=== PATIENT | female | born 1985 | race Caucasian/White ===

== ENCOUNTER 2021-04-01 00:10 | Emergency (ER) | payer BC, OTHER ==
[~2021-04-01] VITALS: Ht 182.9 cm; Wt 102.3 kg
[2021-04-01] MEDS ORDERED: METH-1164 PO (00:36)
[2021-04-01] MEDS ORDERED: SYNT175T2 PO (00:36)
[2021-04-01] MEDS ORDERED: NS 1,000 ML IV ONE (00:50)
[2021-04-01] MEDS ORDERED: ACETAMINOPHEN 500 MG TAB PO ONE (02:05)
[2021-04-01 02:31] LABS: BASO % 0.3 % (0.0-1.0); EOS # 0.4 10^3/uL (0.0-0.5); EOS % 4.7 % (0.0-3.0); HEMATOCRIT 38.1 % (36.0-47.0); HEMOGLOBIN 12.7 g/dl (12.0-15.5); LYMPH # 3.5 10^3/uL (1.5-5.0); LYMPH % 46.1 % (24.0-44.0); MEAN CORPUSCULAR HEMOGLOBIN 30.2 pg (27.0-33.0); MEAN CORPUSCULAR HGB CONC 33.3 g/dl (32.0-36.5); MEAN CORPUSCULAR VOLUME 90.7 fl (80.0-96.0); MONO # 0.6 10^3/uL (0.0-0.8); MONO % 8.3 % (2.0-8.0); NEUTROPHILS # 3.1 10^3/uL (1.5-8.5); NEUTROPHILS % 40.5 % (36.0-66.0); PLATELET COUNT, AUTOMATED 191 10^3/uL (150-450); WHITE BLOOD COUNT 7.6 10^3/uL (4.0-10.0)
[2021-04-01 02:49] LABS: INR 1.01; PROTHROMBIN TIME 13.7 SECONDS (12.7-14.5)
[2021-04-01 02:50] LABS: PARTIAL THROMBOPLASTIN TIME 34.1 SECONDS (25.9-37.0)
[2021-04-01 02:52] LABS: D-DIMER QUANT 583.47 ng/ml (<500)
[2021-04-01 03:02] LABS: ALBUMIN 3.6 GM/DL (3.2-5.2); ALT/SGPT 24 U/L (12-78); BILIRUBIN,DIRECT < 0.1 MG/DL (0.0-0.2); BILIRUBIN,TOTAL 0.3 MG/DL (0.2-1.0); LIPASE 99 U/L (73-393); MB/CK RELATIVE INDEX 0.92 (< OR =4); TOTAL PROTEIN 6.8 GM/DL (6.4-8.2)
[2021-04-01] MEDS ORDERED: MORPHINE 4 MG/ML 1ML VIAL/SYRINGE (J2270) IV ONE (03:25)
[2021-04-01 03:38] LABS: RSV AMPLIFICATION NEGATIVE (NEGATIVE)
--- NOTE | 2021-04-01 04:22 | REPVR ---
PROCEDURE INFORMATION: Exam: US Duplex Artery or Vein of the Abdominal and/or Reproductive Organs, Limited Ovaries Exam date and time: 04/01/2021 2:37 AM Age: 35 years old Clinical indication: Pelvic pain; Additional info: R lower pelvic pain, irreg heavy bleeding TECHNIQUE: Imaging protocol: Real-time duplex ultrasound scan of the arterial or venous flow with quintero scale, color Doppler flow and spectral waveform analysis with image documentation. Limited duplex exam focused on the ovaries. Duplex images required to evaluate for torsion and other vascular conditions. COMPARISON: No relevant prior studies available. FINDINGS: Right ovary/adnexa: Duplex blood flow within the right ovary with color Doppler and spectral waveforms. No evidence of torsion. Left ovary/adnexa: Left ovary not visualized, obscured by bowel gas. IMPRESSION: 1. No evidence of ovarian torsion on the right. 2. Left ovary not visualized, obscured by bowel gas. 3. See complete ultrasound report below. PROCEDURE INFORMATION: Exam: US Pelvis Complete, Transabdominal and US Pelvis, Transvaginal Exam date and time: 04/01/2021 2:37 AM Age: 35 years old Clinical indication: Pelvic pain; Additional info: R lower pelvic pain, irreg heavy bleeding TECHNIQUE: Imaging protocol: Real-time transabdominal and transvaginal pelvic ultrasound (complete) with image documentation. Transvaginal imaging was used for better evaluation of the endometrium, adnexa, and/or cervix. COMPARISON: No relevant prior studies available. FINDINGS: Uterus: Uterus is retroverted measuring 8.0 x 4.6 x 4.6 cm. No myometrial mass. Endometrium is unremarkable measuring 6 mm in thickness. Few nabothian cysts. Right ovary/adnexa: Right ovary measures 2.8 x 1.7 x 1.4 cm and is unremarkable containing small follicles. Blood flow present within the right ovary. No adnexal mass. Left ovary/adnexa: Left ovary not visualized, obscured by bowel gas. Intraperitoneal space: No free fluid. Urinary bladder: Unremarkable. IMPRESSION: 1. Retroverted uterus. Endometrium is unremarkable measuring 6 mm in thickness. 2. Unremarkable right ovary. Nonvisualization of the left ovary. 3. No adnexal masses or free fluid. Electronically signed by: Ramana Farris On 04/01/2021 04:22:23 AM
--- NOTE | 2021-04-01 04:28 | REPVR ---
PROCEDURE INFORMATION: Exam: XR Chest Exam date and time: 04/01/2021 2:52 AM Age: 35 years old Clinical indication: Other: Abdominal pain TECHNIQUE: Imaging protocol: XR of the chest. Views: 2 views. COMPARISON: No relevant prior studies available. FINDINGS: Lungs: Unremarkable. No consolidation. Pleural spaces: Unremarkable. No pleural effusion. No pneumothorax. Heart/Mediastinum: Unremarkable. No cardiomegaly. Bones/joints: Pectus excavatum. No acute bony abnormality. IMPRESSION: No acute abnormalities are identified. Electronically signed by: Ramana Farris On 04/01/2021 04:28:04 AM
[2021-04-01] MEDS ORDERED: ISOVUE-370 76% 100ML VIAL As Ordered ONE (04:29)
[2021-04-01] MEDS ORDERED: KETOROLAC 30 MG/ML 1ML VIAL IV ONE (05:35)
[2021-04-01] MEDS ORDERED: ONDANSETRON 4MG/2ML VIAL IV ONE (05:35)
--- NOTE | 2021-04-01 06:19 | REPVR ---
PROCEDURE INFORMATION: Exam: CTA Chest with Contrast Exam date and time: 04/01/21 (4:47am) Age: 35 years old Clinical indication: Chest pain. Elevated D-dimer. TECHNIQUE: Imaging protocol: Computed tomographic angiography of the chest with contrast. 3D rendering (Not supervised by radiologist): MIP and/or 3D reconstructed images were created by the technologist. Radiation optimization: All CT scans at this facility use at least one of these dose optimization techniques: automated exposure control; mA and/or kV adjustment per patient size (includes targeted exams where dose is matched to clinical indication); or iterative reconstruction. Contrast material: Iso Contrast volume: 100 ml Contrast route: IV COMPARISON: Chest films of 04/01/21 FINDINGS: Pulmonary arteries: Normal. No pulmonary emboli. Aorta: Unremarkable. No aortic aneurysm. No aortic dissection. Lungs: Unremarkable. No consolidation. No masses. Pleural spaces: Unremarkable. No pneumothorax. No pleural effusions. Heart: Unremarkable. No cardiomegaly. No pericardial effusion. Lymph nodes: Unremarkable. No enlarged lymph nodes. Bones/joints: Unremarkable. No acute fracture. Soft tissues: Unremarkable. Upper abdomen: Splenomegaly. IMPRESSION: No acute findings. No filling defects suspicious for pulmonary emboli are seen. There is no CT evidence of aortic dissection nor leakage. No aortic aneurysm is appreciated. Splenomegaly. Electronically signed by: Maryjane Matute On 04/01/2021 06:18:39 AM
--- NOTE | 2021-04-01 06:26 | REPVR ---
PROCEDURE INFORMATION: Exam: CT Abdomen and Pelvis with Contrast Exam date and time: 04/01/21 (4:47am) Age: 35 years old Clinical indication: RLQ pain TECHNIQUE: Imaging protocol: Computed tomography of the abdomen and pelvis with contrast Radiation optimization: All CT scans at this facility use at least one of these dose optimization techniques: automated exposure control; mA and/or kV adjustment per patient size (includes targeted exams where dose is matched to clinical indication); or iterative reconstruction. Contrast material: Iso Contrast volume: 100 ml Contrast route: IV COMPARISON: US PELVIS of 04/01/21 FINDINGS: Liver: No solid mass. Fatty liver infiltration. Gallbladder and bile ducts: S/P cholecystectomy. No ductal dilatation. Pancreas: Normal. No ductal dilatation. Spleen: Mild splenomegaly. Adrenal glands: Normal. No mass. Kidneys and ureters: Normal. No hydronephrosis. Stomach and bowel: Unremarkable. No bowel obstruction. No mucosal thickening. Appendix: No evidence of appendicitis. Intraperitoneal space: Unremarkable. No free air. No significant fluid collection. Vasculature: Unremarkable. No abdominal aortic aneurysm. Lymph nodes: Unremarkable. No enlarged lymph nodes. Urinary bladder: Unremarkable as visualized. Reproductive: Unremarkable as visualized. Bones/joints: Unremarkable. No acute fracture. Soft tissues: Unremarkable. IMPRESSION: No acute findings. S/. P cholecystectomy. No acute bowel pathology. No significant RLQ pathology noted. Electronically signed by: Maryjane Matute On 04/01/2021 06:26:15 AM
[2021-04-01 06:57] VITALS: BP 132/74
--- NOTE | 2021-04-01 16:09 | ECGEPIP ---
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
--- NOTE | 2021-04-01 16:11 | ECGEPIP ---
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
== END 2021-04-01 07:01 | disposition home or self-care (01) ==
LOC: M ED 00:10
DX: R07.9 Chest pain, unspecified (principal); R10.9 Unspecified abdominal pain; R00.1 Bradycardia, unspecified; R11.0 Nausea; R19.7 Diarrhea, unspecified; R06.02 Shortness of breath; K27.9 Peptic ulcer, site unspecified, unspecified as acute or chronic, without hemorrhage or perforation; Z87.19 Personal history of other diseases of the digestive system; Z79.899 Other long term (current) drug therapy
CPT/HCPCS: 71046; 71275; 74177; 76830; 76856; 80047; 80076; 82553; 83690; 84484; 84702; 85025; 85379; 85610; 85730; 86850; 86900; 86901; 87210; 87631; 93005; 93041; 93976; 94760; 96361; 96374; 96375; 99285; J1885; J2270; J2405; Q9967